=== PATIENT | female | born 1985 | race Caucasian/White ===

== ENCOUNTER 2021-08-11 05:56 | Day surgery (SDC) | payer OTHER ==
[2021-08-07 13:33] VITALS: BMI 31.7
[2021-08-11] MEDS ORDERED: Oxymetazoline HCl 0.05% ( 15 ML ) ONE ×2 (06:21→06:48)
[2021-08-11] MEDS ORDERED: Lidocaine 1% MPF 2 ML VIAL ONE (06:22)
[2021-08-11] MEDS ORDERED: SUGAMMADEX SODIUM 200 MG/2 ML VIAL ONE (06:36)
[2021-08-11] MEDS ORDERED: Propofol 1,000 MG/100 ML VIAL IV ONE ×2 (06:37)
[2021-08-11] MEDS ORDERED: Ondansetron PF 4 MG/2 ML Vial ONE (06:47)
[2021-08-11] MEDS ORDERED: Midazolam HCl 2 mg/2 ml Vial ONE ×2 (06:47→07:12)
[2021-08-11] MEDS ORDERED: Dexamethasone 20 MG/5 ML VIAL ONE (06:47)
[2021-08-11] MEDS ORDERED: Fentanyl 100 MCG/2 ML VIAL ONE ×3 (06:47→09:31)
[2021-08-11] MEDS ORDERED: Lidocaine 1% PF 5 ML VIAL ONE (06:47)
[2021-08-11] MEDS ORDERED: PROPOFOL 20 ML ONE (06:47)
[2021-08-11] MEDS ORDERED: Rocuronium Bromide 10 MG/ML (10ML VIAL) ONE (06:47)
[2021-08-11] MEDS ORDERED: Mupirocin 2% Ointment 22 GM Tube ONE (06:48)
[2021-08-11] MEDS ORDERED: Lidocaine 1% w/Epinephrine 1:100K 30 ML VIAL ONE (06:49)
[2021-08-11] MEDS ORDERED: CEFAZOLIN 1 GM VIAL ONE (06:49)
[2021-08-11] MEDS ORDERED: Scopolamine 1.5 mg/72 hour Patch ONE (07:12)
[2021-08-11] MEDS ORDERED: Glycopyrrolate 0.2 MG/ML 5 ML SYRINGE ONE (07:48)
[2021-08-11] MEDS ORDERED: Labetalol HCl 100 MG/20 ML VIAL ONE (08:02)
[2021-08-11] MEDS ORDERED: HYDROcodone/Acetaminophen 10/325 mg Tablet ONE (09:46)
== END 2021-08-11 10:50 | disposition home or self-care (01) ==
LOC: CSHSDC 05:56
PROVIDERS: ATTEND Otolaryngology Plastic Surgery within the Head & Neck
DX: J34.2 Deviated nasal septum (principal); J34.3 Hypertrophy of nasal turbinates; R51.9 Headache, unspecified; J34.89 Other specified disorders of nose and nasal sinuses
CPT/HCPCS: J0690; J1100; J2250; J2405; J2704; J3010

== ENCOUNTER 2021-08-14 15:27 | Emergency (ER) | payer OTHER ==
[2021-08-14 17:11] LABS: #Eosinphils 0.2 10x3/uL (0.0-0.5); #Monocytes 0.8 10x3/uL (0.0-1.1); #Neutrophils 5.5 10x3/uL (1.5-8.4); %Basophils 0.4 % (0.0-2.0); %Eosinophils 1.5 % (0.0-6.0); %Lymphocytes 35.8 % (18.0-47.0); %Monocytes 7.6 % (0.0-10.0); %Neutrophils 54.4 % (40.0-75.0); Hemoglobin 14.4 g/dL (12.0-15.5); Mean Corpuscular HGB CONC 32.4 g/dL (32.0-36.0); Mean Corpuscular Hemoglobin 26.7 pg (27.0-33.0); Mean Corpuscular Volume 82.4 fl (81.6-98.3); Mean Platelet Volume 9.7 fl (7.4-10.4); Platelet Count 277 10x3/uL (150-450); RBC Distribution Width 12.2 % (11.5-14.5); Red Blood Cell (RBC) Count 5.39 10x6/uL (3.90-5.03); White Blood Cell (WBC) Count 10.2 10x3/uL (3.5-10.5)
[2021-08-14 17:23] LABS: ALT (SGPT) 19 U/L (8-55); AST (SGOT) 26 U/L (5-34); Albumin 4.1 g/dL (3.5-5.0); Alkaline Phosphatase 43 U/L (40-110); Anion Gap 16 mmol/L (10-20); BUN (Urea Nitrogen) 10 mg/dL (7.0-18.7); Bilirubin, Total 0.5 mg/dL (0.2-1.2); Calc. Creatinine Clearance 0 mL/min (70-130); Calcium 9.4 mg/dL (7.8-10.44); Carbon Dioxide 21 mmol/L (22-29); Chloride 104 mmol/L (98-107); Globulin 3.6 g/dL (2.4-3.5); Glucose 142 mg/dL (70-105); Potassium 3.8 mmol/L (3.5-5.1); Protein, Total 7.7 g/dL (6.0-8.3); Sodium 137 mmol/L (136-145)
[2021-08-14] MEDS ORDERED: HYDROcodone/Acetaminophen 10/325 mg Tablet ONE (20:05)
== END 2021-08-14 20:57 | disposition home or self-care (01) ==
LOC: CSHERS 15:27
DX: R07.2 Precordial pain (principal)
CPT/HCPCS: 71045; 80053; 84484; 85025; 93005